=== PATIENT | female | born 2000 | race Caucasian/White ===

== ENCOUNTER 2021-11-17 20:47 | Emergency (ER) | payer OTHER, SELFPAY ==
[2021-11-17 20:54] VITALS: BP 128/87; RESP 16; TEMP 36.6; O2SAT 98; BMI 25.1
[2021-11-17 21:15] VITALS: BP 111/75
[2021-11-17 21:50] VITALS: BP 115/75; PULSE 66; RESP 22; O2SAT 99
[2021-11-17] MEDS: IBUPROFEN 200 MG TABLET 600 MG PO (21:51)
[2021-11-17] MEDS: COLCHICINE 0.6 MG CAPSULE PO (21:57)
[2021-11-17 22:00] VITALS: BP 110/53; PULSE 63; RESP 22; O2SAT 99
--- NOTE | 2021-11-17 22:25 | ED_ITS ---
HPI - General Adult General Date Seen: 11/17/21 Chief complaint: Chest Pain Stated complaint: Chest pain Time Seen by Provider: 11/17/21 21:31 Source: patient Mode of arrival: ambulatory Limitations: no limitations History of Present Illness HPI narrative: Patient is a 21 year old female who presents with chest pain. This is better when she sits forward and worse when she lies back. The pain has been going on for four days. Ibuprofen helps a little. She is not short of breath she has had no fevers or chills. She is not coughing. She spoke with her PCP two days ago who told her that if she is having chest pain she should go to the emergency department. She ignored this advice for almost two days and comes in this evening. She did not attempt to make a clinic appointment. She has a history of pulmonary embolism. This came after being intubated and bed ridden for days after a suicide attempt. She was on estrogen at that time. No family history of clotting disorder. She has had no leg swelling. She has some pain with deep inspiration. No cough or chest congestion. Related Data Previous Rx's Medication Instructions Recorded colchicine 0.6 mg tablet 0.6 mg PO BID #10 tabs 11/17/21 Allergies Allergy/AdvReac Type Severity Reaction Status Date / Time latex Allergy Verified 11/17/21 20:57 Review of Systems Status of ROS: Reports: 10 or more systems reviewed and unremarkable except as noted in History and below [facility] Medical History (Updated 11/17/21 @ 22:25 by Tanner Stoner MD) History of pulmonary embolus (PE) History of suicide attempt Pericarditis Social History (Updated 11/17/21 @ 22:26 by Tanner Stoner MD) Narrative: unemployed, nonsmoker, single Smoking Status: Never smoker Do you use any of these nicotine containing products: None How often do you have a drink containing alcohol: monthly or less How often do you have six or more drinks on one occasion: Never AUDIT-C Alcohol total score: 1 Non-prescribed substance use: denies use Exam Narrative: Exam Narrative: Vitals noted. HEENT: Conjunctiva clear. Tympanic membranes are pearly white bilaterally. Posterior pharynx is clear without erythema or exudate. Neck is supple without adenopathy, thyromegaly, carotid bruit. Lungs: Clear to auscultation in all philippe. No wheezes, rales, rhonchi. Heart: Regular rate and rhythm without murmur. Abdomen: Soft and nontender. No guarding, rigidity, rebound. Bowel sounds are normal. No palpable masses. Extremities: No cyanosis or edema. Good distal pulses. Skin: No abnormalities noted of the exposed skin. Neurologic: Awake, alert, fully oriented. Neurologic exam is nonfocal. Const: Vital Signs, click to edit/add: Vital Signs - 24 hr 11/17/21 20:54 11/17/21 21:15 11/17/21 21:50 Temperature 97.9 F Pulse Rate [Left P ulse Oximeter] 66 Respiratory Rate 16 22 Blood Pressure [Le ft Upper Arm] 128/87 111/75 115/75 Pulse Oximetry 98 99 Oxygen Delivery Me thod Room Air 11/17/21 22:00 Temperature Pulse Rate [Left P ulse Oximeter] 63 Respiratory Rate 22 Blood Pressure [Le ft Upper Arm] 110/53 L Pulse Oximetry 99 Oxygen Delivery Me thod Documenting provider has reviewed patient's vital signs: yes Course Course Hospital Course: Patient was seen and examined. We discussed pleurisy and pericarditis and DVT. She appears clinically well and I see no indication for imaging or labs. She agrees. She is given a dose of colchicine 0.6 mg orally and a dose of ibuprofen 600 mg orally. She plans to follow-up with her PCP to get an echo and cardiology consult set up. Vital Signs Vital signs: Initial Vital Signs Temperature 97.9 F 11/17/21 20:54 Temperature Source Temporal Artery Scan 11/17/21 20:54 Respiratory Rate 16 11/17/21 20:54 Blood Pressure 128/87 11/17/21 20:54 Blood Pressure Mean 100 11/17/21 20:54 Blood Pressure Position Sitting 11/17/21 20:54 Pulse Oximetry 98 11/17/21 20:54 Oxygen Delivery Method 11/17/21 20:54 Vital Signs Temperature 97.9 F 11/17/21 20:54 Respiratory Rate 16 11/17/21 20:54 Blood Pressure 128/87 11/17/21 20:54 Pulse Oximetry 98 11/17/21 20:54 Oxygen Delivery Method 11/17/21 20:54 Temperature 97.9 F 11/17/21 20:54 Pulse Rate 63 11/17/21 22:00 Respiratory Rate 11/17/21 22:00 Blood Pressure 110/53 L 11/17/21 22:00 Pulse Oximetry 99 11/17/21 22:00 Oxygen Delivery Method 11/17/21 20:54 Discharge Plan Discharge Clinical Impression: Chest pain Patient Disposition: Home, Self-Care Condition: Improved Additional Instructions: Ibuprofen 600 mg 3 times daily. Colchicine 0.6 mg b.i.d.. Follow-up with your PCP in 3-5 days if not improving. Return to the emergency department for worsening pain, shortness of breath, or respiratory distress. Prescriptions: New colchicine 0.6 mg tablet 0.6 mg PO BID Qty: 10 0RF Stand Alone Forms: Space Apart Info Instructions
== END 2021-11-17 22:13 | disposition home or self-care (01) ==
LOC: ED 21:59
PROVIDERS: Emergency Provider Family Medicine
DX: R07.9 Chest pain, unspecified (principal)
CPT/HCPCS: 99283; 99284; A9270